=== PATIENT | female | born 1995 | race Two or more races ===

== ENCOUNTER → 2024-12-17 14:41 | Outpatient (REF) | payer BC, SELFPAY | LOC: HWRAD 14:41 | PROVIDERS: ATTENDING PHYSICIAN Nurse Practitioner Primary Care; REFERRING PHYSICIAN Student in an Organized Health Care Education/Training Program | DX: R59.0 Localized enlarged lymph nodes (principal); H69.93 Unspecified Eustachian tube disorder, bilateral | CPT/HCPCS: 76536 ==

== ENCOUNTER 2025-01-20 06:11 | Day surgery (SDC) | payer BC, SELFPAY ==
[2025-01-20] VITALS (9 sets, daily range): BP systolic 85–118; BP diastolic 48–78; BMI 30.5
[2025-01-20] MEDS: NORMOSOL-R/PLASMALYTE-A 1000 IV (09:58)
[2025-01-20] MEDS: TRANSDERM-SCOP 1 PATCH TRANSDERM (11:16)
[2025-01-20] MEDS: TYLENOL 1000 MG PO (11:16)
--- NOTE | 2025-01-20 13:39 | OR.RPT ---
Operative Report
Operative Report
Patient name: Louise Victoria
Date of : 1995

Date of procedure: 01/20/2025
Preoperative diagnosis: Right neck mass, cervical adenopathy
Postoperative diagnosis: Same
Procedures performed: Excisional lymph node biopsy right neck, ultrasound guidance
Surgeon: James Vu DO
Anesthesiologist: Dr. Hammond
Anesthesia: General, LMA
Surgical indications: Louise is a 29-year-old woman who presented to the otolaryngology department with a chief complaint of right persistent cervical adenopathy in the retroauricular region present for approximately 8 weeks and largely unchanged.
She had an ultrasound performed which demonstrated grossly normal lymph node sided architecture and size within normal limits. She is planning to begin fertility treatments soon. Given its persistence, associated discomfort and uncertain prognosis
she elected to proceed with diagnostic and therapeutic right retroauricular excisional lymph node biopsy. She excepted all risks of the operation which included pain, infection, bleeding, scarring and potential need for additional surgeries.
Details of procedure: Louise was met in the preoperative holding area where all questions were answered and informed written consent was reviewed. She was then taken back to the operating room and transferred supine onto the operating room table.
A safety strap was placed. General anesthesia was induced and an LMA was inserted transorally by the anesthesia team. A surgical timeout was performed. The ultrasound machine was brought into the operative field and used to visualize the right
posterior triangle of the neck. Structures identified included trapezius and splenius capitis muscle at edges, posterior aspect of the sternocleidomastoid muscle, mastoid process, and within this triangle were at least 3 clearly visualized lymph
nodes, the largest of which was approximately 1.2 cm with spherical shape and preserved fatty hilum. This ultrasound visualization needed an incision marking which was made approximately 1.5 cm anterior to her right occipital hairline,
approximately 3 cm posterior to her retroauricular crease. Next the surgical field was prepped with Betadine and draped in sterile fashion. 1% lidocaine with epinephrine 1-100,000 was used to infiltrate the planned incision area for local
anesthesia and hemostasis. A #15 blade was used to incise the epidermis and dermis. Bovie monopolar cautery on a setting of 30 was used to coagulate bleeding skin edges. Blunt dissection and Bovie cautery were then used to incise the superficial
cervical fascia and immediately deep to this lie the larger of the 3 lymph nodes visualized. This was removed with blunt dissection and bipolar cautery on a setting of 40. This was sent for pathology. There were no other immediately obvious lymph
nodes seen. Next dissection with Bovie cautery proceeded to identify the superior posterior aspect of the right sternocleidomastoid muscle and fibrofatty tissue was excised along this margin and proceeded to a deep margin of the splenius and
levator scapulae muscles.. Dissection proceeded posteriorly to the trapezius muscle. The specimen was sent along with the previously excised lymph node. An additional lymph node was excised from the anterior margin of the surgical bed.
Hemostasis was achieved with Bovie cautery. The wound was irrigated. Hemostasis was confirmed. The incision was closed with a 3-0 Vicryl suture in a simple interrupted inverted fashion. A 5-0 plain gut stitch was used to close the epidermal
edges. This was reinforced with Dermabond surgical glue. A bandage was laid overtop. This concluded the procedure and she tolerated it well. The patient was then transferred back to the care of the anesthesia team where she emerged safely from
anesthesia and the LMA was removed without difficulty. She was taken the PACU in stable condition.
Specimens: Right posterior triangle neck, retroauricular lymph nodes
Estimated blood loss: 2 cc
Complications: None immediately present
Disposition: Stable to PACU followed by discharge to home.
== END 2025-01-20 14:45 | disposition home or self-care (01) ==
LOC: SDS 06:11
PROVIDERS: ATTENDING PHYSICIAN Student in an Organized Health Care Education/Training Program; FAMILY PHYSICIAN Family Medicine
DX: R59.0 Localized enlarged lymph nodes (principal)
CPT/HCPCS: 38500; 88305